=== PATIENT | male | born 2000 | race African-American/Black ===

== ENCOUNTER 2020-12-04 16:54 | Emergency (ER) | payer SELFPAY ==
[~2020-12-04] VITALS: Ht 185.4 cm; Wt 83.9 kg
[2020-12-04] MEDS ORDERED: Ketorolac 30mg Inj IM ONE (17:30)
[2020-12-04 17:45] VITALS: BP 126/74
--- NOTE | 2020-12-04 17:47 | NUR ---
ED Nurse Note: pt with xrays done and pa in to reduce right shoulder without procedural sedation. shoulder immobilizer provided. pt tolerates well.
--- NOTE | 2020-12-04 18:00 | NUR ---
ED Nurse Note: shoulder becoming dislocated after placed in. dr valentine in to reduce.
--- NOTE | 2020-12-04 18:01 | NUR ---
ED Nurse Note: md reducing shoulder repeat xray being done
--- NOTE | 2020-12-04 18:10 | Emergency Room Report ---
History of Present Illness General Chief Complaint: Upper Extremity Injury Source: Patient Present Illness HPI 20-year-old male with history of multiple dislocations of the right shoulder here complaining of dislocation of right shoulder while playing basketball. Reports that he usually pops it back in himself however could not do so today. Obvious deformity noted. Patient reported that he does not want to be sedated. Denies other injury, denies any tingling numbness. Multiple attempts I was able to reduce the shoulder however patient was in pain and resisted it was repeatedly dislocated. The shoulder reduction was completed with my supervising physician . Patient is neurovascularly intact Allergies: Coded Allergies: No Known Allergies (Unverified , 12/04/20) COVID-19 Screening Contact w/high risk pt: No Experienced COVID-19 symptoms?: No COVID-19 Testing performed MENTAL HEALTH COORDINATOR: No Patient History Past Medical History: see triage record Past Surgical History: none Pertinent Family History: none Immunizations: UTD Reviewed Nursing Documentation: PMH: Agreed; PSxH: Agreed Nursing Documentation-PMH Past Medical History: No Stated History Review of Systems All Other Systems: negative except mentioned in HPI Physical Exam Vital Signs Date Time Temp Pulse Resp B/P (MAP) Pulse Ox O2 Delivery O2 Flow Rate FiO2 12/04/20 17:02 98.2 89 16 127/75 (92) 96 Room Air Sp02 EP Interpretation: reviewed, normal General Appearance: no apparent distress, alert, GCS 15, non-toxic Head: normocephalic, atraumatic Eyes: bilateral eye normal inspection, bilateral eye PERRL ENT: hearing grossly normal, normal pharynx, no angioedema, normal voice Neck: full range of motion, supple, supple/symm/no masses Respiratory: chest non-tender, no retraction, no accessory muscle use, speaking full sentences Cardiovascular #1: regular rate, rhythm, no edema Cardiovascular #2: 2+ radial (R), 2+ radial (L) Gastrointestinal: soft Musculoskeletal: back normal, other - Dislocated right shoulder Neurologic: alert, motor strength/tone normal, oriented x3, sensory intact, responsive, speech normal Psychiatric: judgement/insight normal, memory normal, mood/affect normal, no suicidal/homicidal ideation Skin: no rash Lymphatic: no adenopathy Procedures Joint Reduction Joint Reduction : Consent: Verbal Joint Reduction Site: shoulder (R) Procedural Sedation: No Reduction Attempts: Other - 4 Pre-Procedure NV Exam: Yes Post-Procedure NV Exam: Yes Post Joint Reduction Film: joint reduced Patient Tolerated: Well Complications: None Progress Shoulder immobilizer applied Medical Decision Making PA Attestation All diagnoses and treatment plans were reviewed and discussed with my supervising physician Dr. Ferguson Diagnostic Impression: Primary Impression: Shoulder dislocation ER Course 20-year-old male with history of multiple dislocations of the right shoulder here complaining of dislocation of right shoulder while playing basketball. Reports that he usually pops it back in himself however could not do so today. Obvious deformity noted. Patient reported that he does not want to be sedated. Denies other injury, denies any tingling numbness. Multiple attempts I was able to reduce the shoulder however patient was in pain and resisted it was repeatedly dislocated. The shoulder reduction was completed with my supervising physician . Patient is neurovascularly intact Ddx considered but are not limited to : Shoulder sprain versus strain versus f racture versus dislocation Vital signs: are WNL, pt. is afebrile H&PE are most consistent with: Right shoulder dislocation ORDERS: Right shoulder x-ray pre and post reduction, [facility] ED INTERVENTIONS: Toradol IM DISCHARGE: At this time pt. is stable for d/c to home. Will provide printed patient care instructions, and any necessary prescriptions. Care plan and follow up instructions have been discussed with the patient prior to discharge. Patient follow with reflexes, take medication as directed, keep the immobilizer on, if worsening symptoms return to the emergency room Other X-Ray Diagnostic Results Other X-Ray Diagnostic Results #1: X-Ray ordered: Right shoulder prereduction # of Views/Limited Vs Complete: 3 View Indication: Pain EP Interpretation: Yes PA Xray: Interpretation reviewed, by supervising MD, and agrees with findings. Interpretation: no fractures, other - Right shoulder dislocation Impression: Other - Right shoulder dislocation Electronically Signed by: Harshil Soto PA-C Other X-Ray Diagnostic Results #2: X-Ray ordered: Right shoulder postreduction # of Views/Limited Vs Complete: 1 View Indication: Pain EP Interpretation: Yes PA Xray: Interpretation reviewed, by supervising MD, and agrees with findings. Interpretation: no dislocation, no soft tissue swelling, no fractures, other - Reduced Impression: No acute disease Electronically Signed by: Harshil Soto PA-C Last Vital Signs Date Time Temp Pulse Resp B/P (MAP) Pulse Ox O2 Delivery O2 Flow Rate FiO2 12/04/20 17:45 86 16 126/74 96 Room Air 12/04/20 17:02 98.2 Disposition: HOME, SELF-CARE Condition: Stable Scripts Ibuprofen (Ibu) 800 Mg Tablet 800 MG PO TID, #30 TAB Prov: Harshil Haque 12/04/20 Methocarbamol* (ROBAXIN-500*) 500 Mg Tablet 500 MG ORAL TID PRN for For Pain, #15 TAB 0 Refills Prov: Harshil Haque 12/04/20 Referrals: NOT CHOSEN IPA/MD,REFERRING (PCP) Patient Instructions: Shoulder Dislocation Additional Instructions: Take medication as directed regular provider, follow-up with media relations specialist, if worsening symptoms return to the emergency room Harshil Haque Dec 04, 2020 18:10
[2020-12-04] MEDS ORDERED: IBU800 MG PO (18:11)
[2020-12-04] MEDS ORDERED: ROBAXIN-500MG ORAL (18:11)
[2020-12-04 18:13] VITALS: BP 126/74
--- NOTE | 2020-12-05 15:14 | Diagnostic Imaging Report ---
EXAM: X-RAY XRAY Shoulder Compl R CLINICAL HISTORY: Shoulder pain. Status post reduction. COMPARISON: 12/04/2020 FINDINGS: Total of 3 views of the right shoulder were obtained. The glenohumeral joint is now anatomic in alignment after reduction. Small Hill-Sachs deformity noted. The other bony appendages are intact. AC joint is congruent. Surrounding soft tissue is normal. IMPRESSION: ANATOMIC ALIGNMENT AFTER REDUCTION. SMALL HILL-SACHS DEFORMITY.
--- NOTE | 2020-12-05 15:17 | Diagnostic Imaging Report ---
EXAM: X-RAY XRAY Shoulder Compl R CLINICAL HISTORY: Shoulder pain. COMPARISON: None FINDINGS: Total of 3 views of the right shoulder were obtained. There is anterior dislocation of the glenohumeral joint. Humeral head sits in a subcoracoid position. There is no fracture, bony lesions or erosions. AC joint is congruent. Surrounding soft tissue is normal. IMPRESSION: ANTERIOR DISLOCATION OF THE SHOULDER.
== END 2020-12-04 18:15 | disposition home or self-care (01) ==
LOC: EMR 18:02
DX: S43.004A Unspecified dislocation of right shoulder joint, initial encounter (principal); X58.XXXA Exposure to other specified factors, initial encounter; Y93.67 Activity, basketball; Y92.9 Unspecified place or not applicable
CPT/HCPCS: 23650; 73030; 96372; 99284; J1885